=== PATIENT | female | born 1970 | race Caucasian/White ===

== ENCOUNTER 2017-10-10 15:02 | Emergency (ER) | payer BC, SELFPAY ==
[2017-10-10 15:03] VITALS: BP 150/107; PULSE 94; RESP 16; TEMP 36.8; O2SAT 98; BMI 36.6
--- NOTE | 2017-10-10 15:26 | ED.DEP ---
ED Disposition - Plan for ED Patient: Chief Complaint: Eye Problem Instructions: ED [facility] Prescriptions: Clindamycin [Cleocin] 300 mg PO 4X/DAY #80 capsule Referrals: Care Physician,No Primary [Primary Care Provider] - Tom Jernigan MD [STAFF PHYSICIAN] -
--- NOTE | 2017-10-10 15:32 | ED.VISSUMM ---
- ER Visit Summary Date of Service: 10/10/17 Chief Complaint: Left eyelid swelling History of Present Illness: The patient is a 46 F presenting with left eyelid swelling. Patient states this started 3 weeks ago. It has been persistent and not improving. She does not currently have a physician. She wears glasses and contacts. She states she has been trying to not use her contacts recently. She states yesterday it drained fluid. She denies fever. Denies injury. Denies vision changes. Physical Examination: Vitals are stable. Patient is afebrile. Alert no acute distress. HEENT exam left eyelid swelling with no area of fluctuance. Mild surrounding erythema. PERRLA, EOMI. Left eyelid is everted with no foreign body visualized. Neck is supple. Lungs are clear and equal bilaterally. Heart is regular rate and rhythm. Extremities are unremarkable. Skin is warm and dry. Remainder of exam is unremarkable. Emergency Department Course and Treatment: She patient is advised to use warm compresses. Due to the concern of secondary infection she is given a prescription for clindamycin. She is advised to follow-up with ophthalmology tomorrow. Advised return ED if worsening complaints. Disposition: Discharge home Impression: Hordeolum left upper eyelid This note was generated with [employer] dictation software. It may contain incorrect words, spelling, and punctuation that were not noted in review of the chart prior to signing ED Disposition - Plan for ED Patient: Chief Complaint: Eye Problem Instructions: ED [facility] Prescriptions: Clindamycin [Cleocin] 300 mg PO 4X/DAY #80 capsule Referrals: Tom Jernigan MD [STAFF PHYSICIAN] - Care Physician,No Primary [Primary Care Provider] -
[2017-10-10] MEDS: Clindamycin HCl 150 MG Capsule 300 MG PO (15:49)
[2017-10-10 15:52] VITALS: BP 141/97; PULSE 82; RESP 18
== END 2017-10-10 15:53 | disposition home or self-care (01) ==
LOC: ED 15:39
PROVIDERS: Emergency Provider Emergency Medicine
DX: H00.014 Hordeolum externum left upper eyelid (principal); Z72.0 Tobacco use
CPT/HCPCS: 99282

== ENCOUNTER → 2017-10-11 14:31 | Outpatient (CLI) | payer BC, SELFPAY ==
--- NOTE | 2017-10-11 14:39 | RAD_ITS ---
STUDY: X-RAY - LEFT HAND REASON FOR EXAM: Female, 46 years old. Inflammatory polyarthropathy. TECHNIQUE: 3 view(s) of the hand. COMPARISON: None. FINDINGS: Normal radiocarpal articulation. Normal distal radioulnar joint. Normal visualized carpal bones. Normal carpal articulations Normal carpometacarpal articulation of the thumb. Normal second through fifth carpometacarpal joints. Normal metacarpi. Normal metacarpophalangeal joint of the thumb. Normal interphalangeal joint of the thumb. Normal proximal and distal phalanges of the thumb. Normal metacarpophalangeal joints of the second through fifth fingers. There is diffuse articular joint space narrowing of the proximal and distal interphalangeal joints of the second through fifth fingers, but without erosive changes or periarticular soft tissue swelling. Normal phalanges of the second through fifth fingers. The soft tissue structures are unremarkable. RAD/Hand Min 3 Views IMPRESSION: Degenerative changes of the interphalangeal joints. No evidence for acute abnormality or erosive arthropathy. Electronically Signed: Andrzej Landeros MD at 19:53 EDT , Service support ,
--- NOTE | 2017-10-11 14:39 | RAD_ITS ---
STUDY: X-RAY - RIGHT HAND REASON FOR EXAM: Female, 46 years old. Inflammatory polyarthropathy. TECHNIQUE: 3 view(s) of the hand. COMPARISON: None. FINDINGS: Normal radiocarpal articulation. Normal distal radioulnar joint. Normal visualized carpal bones. Normal carpal articulations Normal carpometacarpal articulation of the thumb. Normal second through fifth carpometacarpal joints. Normal metacarpi. Normal metacarpophalangeal joint of the thumb. Normal interphalangeal joint of the thumb. Normal proximal and distal phalanges of the thumb. Normal metacarpophalangeal joints of the second through fifth fingers. There is diffuse articular joint space narrowing of the proximal and distal interphalangeal joints of the second through fifth fingers, but without erosive changes or periarticular soft tissue swelling. Normal phalanges of the second through fifth fingers. The soft tissue structures are unremarkable. RAD/Hand Min 3 Views IMPRESSION: Degenerative changes of the interphalangeal joints. No evidence for acute abnormality or erosive arthropathy. Electronically Signed: Andrzej Landeros MD at 19:51 EDT , Service support ,
--- NOTE | 2017-10-11 14:39 | RAD_ITS ---
STUDY: X-RAY - PELVIS REASON FOR EXAM: Female, 46 years old. Inflammatory polyarthropathy. TECHNIQUE: One view of the pelvis was obtained. COMPARISON: None. FINDINGS: There is a non-specific bowel gas pattern. Normal visualized soft tissue structures. Normal bilateral iliac wings, sacroiliac joints and visualized sacrum. Normal visualized bilateral superior and inferior pubic rami. There are degenerative changes of the pubic symphysis with articular narrowing and sclerosis. Normal ischial tuberosities. Normal visualized right femoral head. Normal right acetabulum. Normal right hip joint. Normal visualized left femoral head. Normal left acetabulum. Normal left hip joint. RAD/Pelvis 1 or 2 Views IMPRESSION: Normal x-ray examination of the pelvis. Electronically Signed: Andrzej Landeros MD at 19:53 EDT , Service support ,
[2017-10-11 18:12] LABS: Absolute Lymphocyte Count 3.17 X10^3/ul (0.83-4.51); Absolute Neutrophil Count 5.3 X10^3/uL (2.0-7.7); Eosinophil# 0.18 X10^3/uL; Eosinophils% 1.9 % (0-5); Hematocrit 43.4 % (37-47); Hemoglobin 14.4 g/dl (12.0-15.0); Lymphocyte # 3.17 X10^3/ul (4.0); Lymphocyte % 33.1 % (19-41); Mean Corp Hgb Conc 33.2 g/gl (32-36); Mean Corpuscular Hgb 31.2 pg (27.0-32.0); Mean Corpuscular Volume 93.9 fL (81-99); Monocyte# 0.76 X10^3/uL; Monocyte% 7.9 % (0-10); Neutrophil # 5.34 X10^3/uL (2.7-7.7); Neutrophil % 55.9 % (47-70); Platelet Count 277 K/mm3 (150-450); RBC Distribution Width CV 13.4 % (11.6-14.6); RBC Distribution Width SD 44.6 fl (35.1-43.9); Red Blood Count 4.62 M/mm3 (4.2-5.4); White Blood Count 9.6 K/mm3 (4.4-11.0)
[2017-10-11 18:19] LABS: POSITIVE COUNT NO; POSITIVE DIFFERENTIAL NO; POSITIVE MORPHOLOGY NO
[2017-10-11 19:56] LABS: ALB/GLOB Ratio 1.2 RATIO (0.9-2.4); AST(SGOT) 13 U/L (15-37); Alanine Aminotransfer ALT/SGPT 22 U/L (13-56); Albumin, Serum 4.1 g/dL (3.2-5.0); Alkaline Phosphatase 89 U/L (45-117); Anion Gap 8 (5-15); BUN 13 mg/dL (7-18); BUN/Creat Ratio 18.1 RATIO (10-20); Calcium,Total 8.6 mg/dL (8.5-10.1); Chloride 102 mmol/L (98-107); Creatinine, Serum 0.72 mg/dL (0.55-1.02); EST Glomerular Filtration Rate 92 mL/min (>60); Est Glom Filt Rate - Afr Amer 111 mL/min (>60); Globulin 3.3 g/dL (2.2-4.2); Glucose 63 mg/dL (74-106); Potassium 3.8 mmol/L (3.5-5.1); Protein, Total 7.4 g/dL (6.4-8.2); Rheumatoid Factor < 10.0 IU/mL (<15); Sodium Level 136 mmol/L (136-145)
[2017-10-13 09:38] LABS: SJOGREN'S Anti-SS-A test 0.4 AI (0.0-0.9); SJOGREN'S Anti-SS-B test < 0.2 AI (0.0-0.9)
[2017-10-14 09:15] LABS: ANTINUCLEAR ANTIBODIES DIRECT Negative (Negative)
[2017-10-18 13:40] LABS: CCP IgG Antibodies 6 units (0-19); HEPATITIS B SURFACE AG Negative (Negative); HLA B27 Negative (.); Hep B Surface Antibodies Non Reactive (.); Hep C Antibodies 0.2 s/co ratio (0.0-0.9)
== END ==
PROVIDERS: Visit Provider Internal Medicine Rheumatology
DX: M06.4 Inflammatory polyarthropathy (principal); M79.7 Fibromyalgia; M15.9 Polyosteoarthritis, unspecified; G56.01 Carpal tunnel syndrome, right upper limb
CPT/HCPCS: 36415; 72170; 73130; 80053; 81374; 85025; 86038; 86140; 86200; 86235; 86431; 86706; 86803; 87340

== ENCOUNTER 2017-10-23 02:03 | Emergency (ER) | payer BC, SELFPAY ==
[2017-10-23 02:05] VITALS: BP 145/94; PULSE 81; RESP 18; TEMP 36.4; O2SAT 98; BMI 34.9
--- NOTE | 2017-10-23 03:10 | CT_ITS ---
STUDY: CT ABDOMEN AND PELVIS WITHOUT CONTRAST REASON FOR EXAM: Female, 47 years old. Right flank pain RADIATION DOSAGE (If Supplied By Facility): CTDIvol = ( 17.28 ) mGy, DLP = ( 841.77 ) mGycm TECHNIQUE: Transaxial images were obtained from the dome of the diaphragm to the symphysis pubis without oral contrast, and without intravenous contrast. Sagittal and coronal images were reconstructed. Individualized dose optimization techniques were used for this CT. COMPARISON: None. FINDINGS: The visualized lung bases are unremarkable. The visualized portions of the heart are within normal limits. Normal liver. Normal gallbladder and extrahepatic biliary system. Normal spleen. Normal pancreas. Normal bilateral adrenal glands. Normal right kidney. Normal left kidney. Normal visualized stomach. Normal small intestine. There are multiple colonic diverticula consistent with diverticulosis. The appendix is visualized and appears normal. Normal abdominal aorta. Normal inferior vena cava. Normal retroperitoneum. Normal urinary bladder. Normal uterus and right ovary. There is a cyst in the left ovary measured 3 cm. Normal abdominal wall. Normal osseous structures. CT/Abdomen/Pelvis without Cont IMPRESSION: Colon diverticulosis. There is a cyst in the left ovary measured 3 cm. Electronically Signed: Jhonatan Bob MD at 4:14 EDT Tel , Service support ,
[2017-10-23] MEDS: Ketorolac 30 MG/ML Syringe IV (03:22)
[2017-10-23 03:28] LABS: Bacteria 0 SEEN /hpf (None Seen); Mucous, Urine 0 SEEN /hpf (<or=2+); Red Blood Cells-Urine 0 SEEN /hpf (0-5); White Blood Cells 0 SEEN /hpf (0-5)
[2017-10-23 03:34] LABS: Absolute Lymphocyte Count 2.63 X10^3/ul (0.83-4.51); Absolute Neutrophil Count 8.4 X10^3/uL (2.0-7.7); Basophil# 0.07 X10^3/uL; Basophil% 0.6 % (0-1); Eosinophils% 2.4 % (0-5); Hematocrit 42.4 % (37-47); Hemoglobin 14.1 g/dl (12.0-15.0); Lymphocyte # 2.63 X10^3/ul (4.0); Lymphocyte % 21.4 % (19-41); Mean Corp Hgb Conc 33.3 g/gl (32-36); Mean Corpuscular Hgb 31.3 pg (27.0-32.0); Mean Platelet Vol. 10.3 fl (6.2-12.0); Monocyte# 0.89 X10^3/uL; Monocyte% 7.2 % (0-10); Neutrophil % 68.2 % (47-70); POSITIVE COUNT NO; POSITIVE DIFFERENTIAL NO; POSITIVE MORPHOLOGY NO; Platelet Count 244 K/mm3 (150-450); RBC Distribution Width CV 13.6 % (11.6-14.6); RBC Distribution Width SD 46.6 fl (35.1-43.9); Red Blood Count 4.51 M/mm3 (4.2-5.4); White Blood Count 12.3 K/mm3 (4.4-11.0)
[2017-10-23 03:34] LABS: Color, Urine Straw (Yellow); Glucose, Dipstick Normal (Normal); Ketone-Dipstick Negative (Negative); Leukocyte Esterase-Dipstick Negative /ul (Negative); Nitrite-Dipstick Negative (Negative); Occult Blood-Urine 50 /ul (Negative); Protein-Dipstick 15 mg/dl (Negative); Specific Gravity, Urine 1.015 (1.002-1.030); Urine Bilirubin Dipstick Negative (Negative); Urine Clarity Clear (Clear); Urine Urobilinogen Normal (Normal)
[2017-10-23 03:41] LABS: Squamous Epithelial Cells - UA 5-10 SEEN /hpf (5-10)
[2017-10-23 03:50] LABS: AST(SGOT) 15 U/L (15-37); Alanine Aminotransfer ALT/SGPT 21 U/L (13-56); Albumin, Serum 3.7 g/dL (3.2-5.0); Alkaline Phosphatase 93 U/L (45-117); Anion Gap 11 (5-15); BUN 25 mg/dL (7-18); BUN/Creat Ratio 25.3 RATIO (10-20); Bilirubin, Direct 0.06 mg/dL (0.00-0.30); Calcium,Total 9.5 mg/dL (8.5-10.1); Chloride 106 mmol/L (98-107); Creatinine, Serum 0.99 mg/dL (0.55-1.02); EST Glomerular Filtration Rate 64 mL/min (>60); Est Glom Filt Rate - Afr Amer 77 mL/min (>60); Estimated Creatinine Clearance 54.96 ml/min; Globulin 3.4 g/dL (2.2-4.2); Glucose 100 mg/dL (74-106); Lipase 88 U/L (73-393); Potassium 3.9 mmol/L (3.5-5.1); Protein, Total 7.1 g/dL (6.4-8.2); Sodium Level 140 mmol/L (136-145)
--- NOTE | 2017-10-23 05:57 | ED.DCSUM_ITS ---
- ER Visit Summary Date of Service: 10/23/17 Chief Complaint: Back flank and abdominal pain. History of Present Illness: The patient is a 47 F history of degenerative disc disease gastritis diverticulosis. Patient states that she has had chronic back pain for some time. Midnight she awoke from sleep with right flank pain. Denies dysuria hematuria. No prior history of kidney stones. Denies any trauma. No nausea, vomiting diarrhea constipation. Physical Examination: No aged female vital signs are stable afebrile she does not look septic toxic in any acute distress. H ENT exam unremarkable. Neck nontender no lymphadenopathy. Lungs clear to auscultation bilaterally. Heart regular rhythm no murmur. Abdomen soft minimally tender epigastric midline. Nondistended no hernias or masses no peritoneal signs. No pulsatile mass she is moving all 4 extremities neurovascular intact calves nontender no edema no cords neurologically she is awake alert with no focal motor deficits. Back exam unremarkable no signs of trauma or rash. Test Results: See below Emergency Department Course and Treatment: Patient with atypical abdominal and back pain. CT flank shows normal appendix. Diverticulosis. And stable ovarian cyst. White count 12. H&H 1442 no bands. Electrolytes normal. Normal gap. Liver enzymes and lipase normal. Urinalysis normal. Treatment Plan: Exam patient is doing well at 05 50. Her abdomen is benign. He has been treated here with Toradol. She and myself and her significant other had a long talk. This may be musculoskeletal etiology and due to the recent work that she has been doing. Currently abdomen is benign. She is in no distress. Both her and her significant other comfortable with her being discharged home. Disposition: Discharge Impression: Right flank pain uncertain etiology. This note was generated with [employer] dictation software. It may contain incorrect words, spelling, and punctuation that were not noted in review of the chart prior to signing ED Disposition - Plan for ED Patient: Chief Complaint: Back Referrals: Care Physician,No Primary [Primary Care Provider] -
--- NOTE | 2017-10-23 05:57 | ED.DEP ---
ED Disposition - Plan for ED Patient: Disposition: Home or Assisted Living Chief Complaint: Back Referrals: Tari Guardado [NON-STAFF] - 1 Week Additional Instructions: Specific cause for your pain tonight. Your CAT scan and labs are basically normal. The pain may be secondary to a musculoskeletal etiology. Patient is doing well on repeat exam at 550 and will be discharged home.
[2017-10-23 06:04] VITALS: BP 130/90; PULSE 61; RESP 18; O2SAT 97
== END 2017-10-23 06:05 | disposition home or self-care (01) ==
PROVIDERS: Emergency Provider Emergency Medicine
DX: R10.9 Unspecified abdominal pain (principal); M54.9 Dorsalgia, unspecified; K57.90 Diverticulosis of intestine, part unspecified, without perforation or abscess without bleeding; N83.209 Unspecified ovarian cyst, unspecified side; G89.29 Other chronic pain; Z72.0 Tobacco use
CPT/HCPCS: 74176; 80048; 80076; 81001; 83690; 85025; 99283; J7030; A4216